=== PATIENT | female | born 1940 | race Hispanic/Latino ===

== ENCOUNTER 2020-10-10 10:06 | Emergency (ER) | payer OTHER ==
[~2020-10-10] VITALS: Ht 157.5 cm; Wt 49.9 kg
[~2020-10-10 10:06] MED LIST: ATORVASTATIN CA10 MG PO; CALTRATE 600600 MG PO; CLOPIDOGREL75 MG PO; FERROUS SULFATE PO; LISINOPRIL-HCT1 EAC1 PO; VITAMIN D-3 PO
[2020-10-10] MEDS ORDERED: ACETAMINOPHEN 325 MG TAB PO ONE (11:00)
[2020-10-10 12:11] VITALS: BP 153/64
== END 2020-10-10 12:14 | disposition home or self-care (01) ==
LOC: ER 10:32
DX: H66.93 Otitis media, unspecified, bilateral (principal); M54.12 Radiculopathy, cervical region; R51.9 Headache, unspecified
CPT/HCPCS: 70450; 72125; 93005; 99283